=== PATIENT | female | born 1990 | race Caucasian/White ===

== ENCOUNTER 2019-01-09 18:03 | Emergency (ER) | payer BC ==
[~2019-01-09] VITALS: Ht 188 cm; Wt 68.0 kg
[~2019-01-09 18:03] MED LIST: BIRTH CONTROL; CIPRO500 MG PO; CIPROFLOXACIN500 M1 PO; CO Q-10100 MG PO; PHENERGAN 25 MG25 M1 PO; PROMS25 WY RECTAL; PROTONIX40 M2 PO; ZOFRAN 4 MG ORAL4 MG PO; ZOFRAN ODT4 MG PO
[2019-01-09 18:23] LABS: URINE BLOOD TRACE (Negative); URINE CLARITY CLEAR; URINE COLOR YELLOW; URINE GLUCOSE-RANDOM NEGATIVE (Negative); URINE LEUKOCYTES NEGATIVE (Negative); URINE NITRITE NEGATIVE (Negative); URINE PROTEIN 1+ (Negative); URINE SPECIFIC GRAVITY 1.025 (1.005-1.030)
[2019-01-09 18:27] LABS: ICTOTEST (BILI CONFIRMATORY) Negative (Negative); URINE BILIRUBIN 1+ (Negative); URINE KETONES 3+ (Negative)
[2019-01-09 18:27] LABS: HEMATOCRIT 42.9 % (37.0-47.0); HEMOGLOBIN 14.8 gm/dL (12.0-15.0); MCH 30.3 pg (26.0-34.0); MCHC 34.5 g/dL (28.0-37.0); MCV 87.9 fL (80.0-100.0); MPV 8.4 fl. (7.2-11.1); NUCLEATED RBCS 0 /100WBC; PLATELET COUNT* 249 thou/uL (150-400); RBC 4.88 mil/uL (4.20-5.00); RDW-CV 13.4 % (10.5-14.5); WBC 8.8 thou/uL (4.0-11.0)
[2019-01-09 18:48] LABS: ABSOLUTE LYMPHOCYTES 0.6 thou/uL (0.8-5.3); ABSOLUTE MONOCYTES 0.4 thou/uL (0.0-1.2); ABSOLUTE NEUTROPHILS 7.8 thou/uL (1.6-8.1)
[2019-01-09 18:49] LABS: PLATELET ESTIMATE ADEQUATE
[2019-01-09 18:50] LABS: ALBUMIN 4.7 g/dL (3.4-5.0); CALCIUM 9.5 mg/dL (8.5-10.1); CREATININE 0.9 mg/dL (0.6-1.3); POTASSIUM 3.8 mmol/L (3.5-5.1); TOTAL BILIRUBIN 1.1 mg/dL (<0.1-1.0); TOTAL PROTEIN 8.5 g/dL (6.4-8.2)
[2019-01-09] MEDS ORDERED: COMPAZINE10 MG PO (19:59)
[2019-01-09 20:09] VITALS: BP 108/56
== END 2019-01-09 20:12 | disposition home or self-care (01) ==
LOC: M.ERS 18:03
PROVIDERS: Physician Assistant
DX: R11.2 Nausea with vomiting, unspecified (principal)